=== PATIENT | female | born 1940 | race Caucasian/White ===

== ENCOUNTER 2024-01-04 14:01 | Emergency (ER) | payer MEDICARE, SELFPAY ==
[2024-01-04 14:09] VITALS: BP 140/80; PULSE 77; O2SAT 94
[2024-01-04 14:36] VITALS: BP 140/70; PULSE 97; RESP 16; TEMP 36.6; O2SAT 91; BMI 28.3
--- NOTE | 2024-01-04 14:45 | PC.NURSE ---
daqu[employer] security secured belongings (davion pad, dress). changed. cleaned for bowel incont. repositioned. pillow under backside- stage 2 pressure ulcer buttocks/coccyx area- cream applied to buttocks. denies si
[2024-01-04 15:17] VITALS: O2SAT 91
[2024-01-04 17:53] VITALS: BP 140/62; PULSE 93; RESP 16; TEMP 36.7; O2SAT 94
--- NOTE | 2024-01-04 18:05 | PC.NURSE ---
pt accepted and drank sean luz. no si. no resp distress. resting, calm in akins.
--- NOTE | 2024-01-04 18:13 | ED_ITS ---
HPI - Psych General Chief Complaint: Behavioral Concerns Stated Complaint: SEC 12,SI Time Seen by Provider: 01/04/24 14:48 Source: EMS Mode of arrival: EMS Limitations: no limitations History of Present Illness HPI Narrative: Patient comes to the emergency room on a section 12 from a [facility] in [facility]. According to the staff, the patient has been refusing to eat, drink, and a take any medications. According to the staff, patient states that her life is over and wants to . 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 Patient denies any SI, HI or psych history. Patient states that she knows she has in a hospital, does not know which one. patient states that she does not know why she is here. Patient requesting to have something to drink Related Data Previous Rx's Medication Instructions Recorded cefuroxime axetil 500 mg tablet 500 mg PO BID #14 tabs 01/04/24 Allergies Allergy/AdvReac Type Severity Reaction Status Date / Time No Known Allergies Allergy Verified 01/04/24 18:06 Review of Systems 2 Review of Systems: Yes Unobtainable due to mental condition [facility] Past Medical History Medical History (Updated 01/04/24 @ 21:37 by Amanda Daniel MD) Hypertension Hyperlipidemia CVA (cerebral vascular accident) Social History Social History Smoked in Last 30 Days: No Use of substances other than those prescribed or required for medical reasons: No Advance Directives: No Advance Directives Information Provided: No Physical Exam 2 Vital Signs: Vital Signs: Last Vital Signs Temp 98.1 F 01/04/24 17:53 Pulse 93 01/04/24 17:53 Resp 16 01/04/24 17:53 BP 140/62 H 01/04/24 17:53 Pulse Ox 94 01/04/24 17:53 O2 Del Method Room Air 01/04/24 17:53 BMI result Body Mass Index 28.3 Const: Other: Appearance: Alert. Oriented X2. No acute distress. Eyes: Pupils equal, round and reactive to light. ENT: Pharynx normal. Neck: Normal inspection. Neck supple. No lymph nodes noted. No crepitus CVS: Normal heart rate and rhythm. Pulses normal. Normal S1 and S2 Respiratory: No respiratory distress. Breath sounds normal. No Wheezing. No rales Abdomen: Soft and nontender. No rigidity. No distention. Skin: Skin warm and dry. Normal skin color. Normal skin turgor. Extremities: No lower extremity edema. No Lacerations. No Rash Neuro: Oriented X 2. No motor deficit. No sensory deficit. Moving all extremities. No slurred speech. CN 2 through 12 grossly intact Psych: calm, cooperative, normal affect Course Course Course Narrative: -all of patient's labs pending -patient denies SI or HI -patient does not remember why she is here -patient requesting to have something to eat and drink Medical Decision Making Medical Decision Making [facility] Narrative: My interpretation of labs: Normal hematology and chemistry, patient does have a UTI. Patient was given a dose of cefuroxime in the ED. This is likely causing her behavioral changes. -patient's nurse discussed this with the staff at the [facility], they are agreeable to take the patient back. Differential Diagnosis Differential Diagnoses: The differential diagnosis associated with the presentation includes (UTI, dementia, anxiety) Admission/Observation Consideration of admission/observation: Escalation of care including admission/observation considered Lab Data [facility] Lab Attestation statement: I reviewed the patient's lab results. 01/04/24 20:16 01/04/24 20:16 Labs: Lab Results 01/04/24 01/04/24 Range/Units 19:36 20:16 WBC 7.6 (4.8-10.8) X10*3/uL RBC 4.07 L (4.20-5.50) X10*6/uL Hgb 12.1 (12.0-16.0) g/dl Hct 38.2 (37.0-47.0) % MCV 93.9 (80.0-98.0) fL MCH 29.7 (27.0-33.0) pg MCHC 31.7 (31.0-35.0) g/dl RDW 14.4 (11.0-16.0) % Plt Count 237 (160-400) X10*3/uL MPV 9.3 L (9.4-12.3) fL Immature Gran % (Auto) 1.3 H (0.0-0.4) % Neut % (Auto) 68.3 (45-73) % Lymph % (Auto) 16.9 L (20-40) % [place] % (Auto) 7.2 (2-11) % Eos % (Auto) 5.9 H (0-4) % Baso % (Auto) 0.4 (0-2) % Lymph # (Auto) 1.3 (1.2-4.9) X10*3/uL [place] # (Auto) 0.6 (0.1-1.2) X10*3/uL Eos # (Auto) 0.5 H (0.0-0.4) X10*3/uL Baso # (Auto) 0.0 (0.0-0.2) X10*3/uL Abs Immat Gran (auto) 0.10 H (0.00-0.03) X10*3/uL Absolute Neuts (auto) 5.2 (2.0-8.3) x10*3/uL Absolute Nucleated RBC 0.000 (0.0-0.012) X10*3/uL Nucleated RBC % (auto) 0.0 (0.0-0.2) /100WBC Sodium 140 (135-145) mmol/L Potassium 3.4 (3.3-5.1) mmol/L Chloride 106 (96-108) mmol/L Carbon Dioxide 24 (22-29) mmol/L Anion Gap 13 (12-20) BUN 14 (9-16) mg/dL Creatinine 0.81 (0.5-1.4) mg/dL Estim Creat Clear Calc 51.1 Estimated GFR > 60 Random Glucose 107 (60-115) mg/dL Calcium 9.1 (8.4-10.2) mg/dL Total Bilirubin 0.5 (0.0-1.0) mg/dL Direct Bilirubin 0.2 (0.0-0.5) mg/dL AST 21 (5-31) U/L ALT 16 (0-31) U/L Alkaline Phosphatase 120 H (39-117) U/L Total Protein 6.7 (6.5-8.0) g/dL Albumin 3.0 L (3.5-5.0) g/dL Urine Color Dark Yellow Urine Appearance Turbid Urine pH 5.5 (5.0-9.0) Ur Specific [place] 1.020 (1.005-1.025) Urine Protein 30 (1+) H (Neg-Trace) mg/dL Urine Glucose (UA) Negative (Negative) mg/dL Urine Ketones Trace (Negative) mg/dL Urine Blood Negative (Negative) Urine Nitrite Negative (Negative) Ur Leukocyte Esterase Small (1+) H (Negative) Urine RBC 0-2 (0-2) /HPF Urine WBC 21-50 H (0-5) /HPF Ur Squamous Epith Cells 3-5 (0-2) /HPF Other Crystals Present Urine Bacteria 2+ (None Seen) Hyaline Casts 6-10 (0-2) /LPF COVID-19 (YONG) Negative (Negative) COVID-19 Clin Com See Note Discharge Plan Discharge Clinical Impression: Acute UTI Patient Disposition: Home, Self-Care Instructions: Urinary Tract Infection in Older Adults (ED) Additional Instructions: PLEASE FOLLOW-UP WITH YOUR PRIMARY CARE PHYSICIAN TOMORROW. IF YOU HAVE ANY WORSENING OR NEW SYMPTOMS, PLEASE RETURN TO THE EMERGENCY ROOM OR CALL 911 Prescriptions: New cefuroxime axetil 500 mg tablet 500 mg PO BID Qty: 14 0RF
[2024-01-04 19:48] LABS: Appearance Urine Turbid; Color Urine Dark Yellow; Glucose Urine UA Negative (Negative); Leukocyte Esterase Urine Small (1+) (Negative); Nitrite Urine Negative (Negative); PH 5.5 (5.0-9.0); UMIC TRIGGER UACC YES; Urine Blood Negative (Negative); Urine Ketones Trace mg/dL (Negative); Urine Protein 30 (1+) mg/dL (Neg-Trace)
[2024-01-04 20:10] LABS: Bacteria Urine 2+ (None Seen); Other Crystals Urine Present; RBC Urine 0-2 /HPF (0-2); UACC Culture Trigger YES; WBC Urine 21-50 /HPF (0-5)
[2024-01-04 20:14] LABS: COVID-19 Test Negative (Negative); IDNOW Serial# 55D5AD1C
--- NOTE | 2024-01-04 20:16 | PC.NURSE ---
Spoke with pt's daughter who is upset about the facility not having called prior to transport. Pt was transferred to [facility] for similar 2 weeks ago and pt was discharged back to rehab. Daughter was called prior to transfer to [facility]. She was not called prior to transfer to [facility] Today, pt's daughter stated she ordered food to pt's facility and states she ate some of it. Daughter is convinced that pt has been eating without the facility knowing. Daughter stated she has been refusing supplements but not prescription medications. Daughter stated she wants to be called if pt refuses medications and she can talk pt into it. Daughter stated she just wants pt to be able to stand and pivot to a wheelchair, then she would be brought down to [place] with her daughter and granddaughter. Spent over 15 minutes on the phone with pt's daughter Daughter (Edil) [phone]
[2024-01-04 20:20] LABS: MANUAL DIFF FLAG NO
[2024-01-04 20:21] LABS: Basophils Percent Auto 0.4 % (0-2); Eosinophils Absolute Auto 0.5 X10*3/uL (0.0-0.4); Eosinophils Percent Auto 5.9 % (0-4); Hematocrit 38.2 % (37.0-47.0); Hemoglobin 12.1 g/dl (12.0-16.0); Imm Gran Pct Auto 1.3 % (0.0-0.4); Lymphocytes Absolute Auto 1.3 X10*3/uL (1.2-4.9); Lymphocytes Percent Auto 16.9 % (20-40); Mean Corpuscular HGB Conc 31.7 g/dl (31.0-35.0); Mean Corpuscular Hemoglobin 29.7 pg (27.0-33.0); Mean Corpuscular Volume 93.9 fL (80.0-98.0); Mean Platelet Volume 9.3 fL (9.4-12.3); Monocytes Absolute Auto 0.6 X10*3/uL (0.1-1.2); Monocytes Percent Auto 7.2 % (2-11); Neutrophils Absolute Auto 5.2 x10*3/uL (2.0-8.3); Neutrophils Percent Auto 68.3 % (45-73); Platelet Count 237 X10*3/uL (160-400); Red Blood Count 4.07 X10*6/uL (4.20-5.50); Red Cell Distribution Width 14.4 % (11.0-16.0); White Blood Count 7.6 X10*3/uL (4.8-10.8)
[2024-01-04 20:33] LABS: Alanine Aminotransferase 16 U/L (0-31); Alkaline Phosphatase 120 U/L (39-117); Anion Gap 13 (12-20); Aspartate Amino Transferase 21 U/L (5-31); Bilirubin Direct 0.2 mg/dL (0.0-0.5); Bilirubin Total 0.5 mg/dL (0.0-1.0); Blood Urea Nitrogen 14 mg/dL (9-16); Calcium 9.1 mg/dL (8.4-10.2); Carbon Dioxide 24 mmol/L (22-29); Chloride 106 mmol/L (96-108); Creatinine Clr Calc Pharmacy 51.1; Estimated Glomerular Filt Rate > 60; Glucose Random 107 mg/dL (60-115); Potassium 3.4 mmol/L (3.3-5.1); Sodium 140 mmol/L (135-145); Total Protein 6.7 g/dL (6.5-8.0)
--- NOTE | 2024-01-04 21:34 | PC.NURSE ---
Spoke with facility to inform them that pt has a UTI and will be sent home with antibiotics. Pt pending transportation.
[2024-01-04] MEDS: cefuroxime axetiL 500 MG TABLET PO (22:38)
--- NOTE | 2024-01-04 22:47 | PC.NURSE ---
Spoke with facility who is now declining pt return. I explained that physician evaluated her and deemed her okay to go home, nd that altered/aggressive behavior is likely due to UTI. Facility stated they will not take her as she has not been seen and cleared by psych. aware. Pt will be with us overnight.
--- NOTE | 2024-01-05 00:55 | PC.NURSE ---
Pt moved into hospital bed and positioned to her right side for comfort.
[2024-01-05 06:00] VITALS: BP 142/56; PULSE 88; RESP 16; TEMP 36.8; O2SAT 92
[2024-01-05 08:46] VITALS: BP 146/68; PULSE 86; RESP 13; O2SAT 93
--- NOTE | 2024-01-05 08:51 | PC.NURSE ---
Resumed care of patient, she is currently resting comfortably, denies pain/SI/HI thoughts, she is oriented. Awaiting pysch consult at this time
[2024-01-05 11:01] VITALS: BP 119/56; PULSE 88; RESP 16; TEMP 36.9; O2SAT 91
--- NOTE | 2024-01-05 11:02 | PC.NURSE ---
this RN resumed care of pt at this time. vss and up to date aside from pt having borderline low O2 at this time. 91% on RA. no sob/wob noted. no apparent distress. respirations even and unlabored. pt resting comfortably in hospital bed in the hallway at this time. pt pending psych eval at this time. plan of care ongoing.
--- NOTE | 2024-01-05 12:34 | P.CNPS_ITS ---
History of Present Illness Date of Service: 01/05/2024 Chief Complaint: SEC 12,SI Discussed with referring provider: Yes Sources of Information: patient interviewed, chart reviewed and crisis/core team assessment reviewed HPI Narrative: Ms. Ross is a 83 year-old woman with hx of dementia who was sent from SNF due to increase agitation, refusing to take medications, decrease oral intake. Medical work up remarkable for possible UTI. Pt was started on ceftin 250mg po BID x 7 days on 01/04. Other labs including CBC without leukocitosos. CMP without electrolyte imbalances. BUN 14, Cr. 0.81 wnl. Pt seen in the ED. She reports feeling tired. She is resting in akins of ED. She reports difficulty sleeping due to noise in the ED. She is able to tell this entry writer she is in the hospital. She does asks this entry writer which hospital as she states she does not know. She does not know why she is here in the hospital and states maybe a stroke? She is not sure where she resides. She denies any pain. She has not had any behavioral disturbances while in the ED. She has taken antibiotic as prescribed. REPLACED BY [facility] Medical History (Updated 01/05/24 @ 12:41 by Alissa Phan) Hypertension Hyperlipidemia CVA (cerebral vascular accident) Diagnostics Vital Signs (24Hr): Vital Signs - 24 hr 01/04/24 14:36 01/04/24 15:17 01/04/24 17:53 Temperature 98 F 98.1 F Pulse Rate 97 93 Respiratory Rate 16 16 Blood Pressure 140/70 H 140/62 H Pulse Oximetry 91 L 91 L 94 Oxygen Delivery Method Room Air Room Air Room Air 01/05/24 06:00 01/05/24 08:46 01/05/24 11:01 Temperature 98.2 F 98.4 F Pulse Rate 88 86 88 Respiratory Rate 16 13 16 Blood Pressure 142/56 H 146/68 H 119/56 L Pulse Oximetry 92 93 91 L Oxygen Delivery Method Room Air Room Air Room Air BMI result Body Mass Index 28.3 Labs 01/04/24 20:16 01/04/24 20:16 Labs: Laboratory Results - last 48 hr 01/04/24 01/04/24 19:36 20:16 WBC 7.6 RBC 4.07 L Hgb 12.1 Hct 38.2 MCV 93.9 MCH 29.7 MCHC 31.7 RDW 14.4 Plt Count 237 MPV 9.3 L Immature Gran % (Auto) 1.3 H Neut % (Auto) 68.3 Lymph % (Auto) 16.9 L [place] % (Auto) 7.2 Eos % (Auto) 5.9 H Baso % (Auto) 0.4 Lymph # (Auto) 1.3 [place] # (Auto) 0.6 Eos # (Auto) 0.5 H Baso # (Auto) 0.0 Abs Immat Gran (auto) 0.10 H Absolute Neuts (auto) 5.2 Absolute Nucleated RBC 0.000 Nucleated RBC % (auto) 0.0 Sodium 140 Potassium 3.4 Chloride 106 Carbon Dioxide 24 Anion Gap 13 BUN 14 Creatinine 0.81 Estim Creat Clear Calc 51.1 Estimated GFR > 60 Random Glucose 107 Calcium 9.1 Total Bilirubin 0.5 Direct Bilirubin 0.2 AST 21 ALT 16 Alkaline Phosphatase 120 H Total Protein 6.7 Albumin 3.0 L Urine Color Dark Yellow Urine Appearance Turbid Urine pH 5.5 Ur Specific [place] 1.020 Urine Protein 30 (1+) H Urine Glucose (UA) Negative Urine Ketones Trace Urine Blood Negative Urine Nitrite Negative Ur Leukocyte Esterase Small (1+) H Urine RBC 0-2 Urine WBC 21-50 H Ur Squamous Epith Cells 3-5 Other Crystals Present Urine Bacteria 2+ Hyaline Casts 6-10 COVID-19 (YONG) Negative COVID-19 Clin Com See Note Mental Status Exam Mental Status Exam Narrative: Appearance: MO, wearing hospital gown, NAD Behavior: cooperative Psychomotor: no agitation or retardation noted Speech: clear, normal rate/rhythm/volume, spontaneous TP: mostly linear TC: feeling tired, wanting to rest Mood: tired Affect: congruent SI: none HI: none VH/AH: none Delusions: none Insight/judgment: impaired x 2. Memory/cog: alert, not oriented to situation, although she does know this is a hospital, does not know the city, nor year or month. severe underlying cognitive impairements. Medications Medications Current Medications Cefuroxime Axetil (Cefuroxime Axetil 250 Mg Tablet) 250 mg PO BID MIMA Stop: 01/12/24 20:59 Allergies Allergies Allergy/AdvReac Type Severity Reaction Status Date / Time No Known Allergies Allergy Verified 01/04/24 18:06 Assessment & Plan Assessment & Plan (1) Major neurocognitive disorder: Status: Acute Code(s): F03.90 - Unspecified dementia, unspecified severity, without behavioral disturbance, psychotic disturbance, mood disturbance, and anxiety Plan Mrs. Ross is a 83 year-old woman with hx of dementia who was brought here to the ED due to increase combative behaviors, decrease oral intake and refusing to take medications. medical work up remarkable mostly for UTI. However, her presentation is not as delirious as her attention appears mostly intact. She was started on ceftin yesterday. She has been consistent taking medication. No behavioral concerns observed while in the ED. At this point would recommend to return to SNF and continue OP treatment. She has not had any incidences of disruptive nor combative behaviors, nor has been given medications for management of combative behaviors. Total time managing care of this patient today ____ minutes.
--- NOTE | 2024-01-05 14:37 | PC.NURSE ---
this RN called [facility] to call and give report. report given to KIESHA Boyer at this time. will notify field secretary in ED that SNF has accepted pt to return at this time.
[2024-01-05 15:08] VITALS: BP 134/52; PULSE 90; RESP 16; TEMP 37; O2SAT 90
== END 2024-01-05 16:03 | disposition home or self-care (01) ==
PROVIDERS: Emergency Provider Emergency Medicine; PCP Internal Medicine
DX: N39.0 Urinary tract infection, site not specified (principal); F03.90 Unspecified dementia, unspecified severity, without behavioral disturbance, psychotic disturbance, mood disturbance, and anxiety; I69.351 Hemiplegia and hemiparesis following cerebral infarction affecting right dominant side; I10 Essential (primary) hypertension; E78.5 Hyperlipidemia, unspecified; Z11.52 Encounter for screening for COVID-19
CPT/HCPCS: 36415; 80048; 80076; 81001; 85025; 87086; 87088; 87186; 87635; 99284; S9485

== ENCOUNTER → 2024-01-04 15:34 | Outpatient (BNV) | payer OTHER, SELFPAY | PROVIDERS: Emergency Provider Emergency Medicine; PCP Internal Medicine; Visit Provider Social Worker | DX: F03.90 Unspecified dementia, unspecified severity, without behavioral disturbance, psychotic disturbance, mood disturbance, and anxiety (principal) | CPT/HCPCS: 99285 ==